=== PATIENT | female | born 1950 | race Caucasian/White ===

== ENCOUNTER 2017-09-30 06:32 | Day surgery (SDC) | payer OTHER, MEDICARE ==
[2017-09-29 17:31] VITALS: BMI 24.3
[~2017-09-30 06:32] MED LIST: BSS (NA/CA/MG/K) BALANCED SALT SOLUTION OPHTH SOLN 15 ML BOTTLE OS ONE; CHONDROITIN SU A/HYALUR SOD 1 KIT IO ONE; EPINEPHrine/PF 1 MG/1 ML (1:1,000) AMPULE SQ ONE; LIDOCAINE HCL 1% PRESERVATIVE FREE - 30ML VIAL IO ONE; POVIDONE-IODINE 5% OPHTHALMIC PREP 30 ML SOLUTION OS ONE; TETRACAINE 0.5% OPHTH SOLN 2 ML BOTTLE OS ONE
[2017-09-30] MEDS ORDERED: CIPROFLOXACIN 0.3% EYE DROPS 5 ML BOTTLE ONE (06:42)
[2017-09-30] MEDS ORDERED: CYCLOPENTOLATE HCL 1% OPHTH SOLN 2 ML BOTTLE ONE (06:42)
[2017-09-30] MEDS ORDERED: FLURBIPROFEN 0.03% OPHTH SOLN 2.5 ML BOTTLE ONE (06:42)
[2017-09-30] MEDS ORDERED: PHENYLEPHRINE 2.5% OPHTH SOLN 15 ML BOTTLE ONE (06:43)
[2017-09-30] MEDS ORDERED: TROPICAMIDE 1% OPHTH SOLN 15 ML BOTTLE ONE (06:43)
[2017-09-30] MEDS ORDERED: FLURBIPROFEN 0.03% OPHTH SOLN 2.5 ML BOTTLE OS ONE ×3 (07:00→07:20)
[2017-09-30] MEDS ORDERED: PHENYLEPHRINE 2.5% OPHTH SOLN 15 ML BOTTLE OS ONE ×3 (07:00→07:20)
[2017-09-30] MEDS ORDERED: CYCLOPENTOLATE HCL 1% OPHTH SOLN 2 ML BOTTLE OS ONE ×3 (07:00→07:20)
[2017-09-30] MEDS ORDERED: TROPICAMIDE 1% OPHTH SOLN 15 ML BOTTLE OS ONE ×3 (07:00→07:20)
[2017-09-30] MEDS ORDERED: CIPROFLOXACIN HCL 0.3% OPHTH 2.5ML BOTTLE OS ONE ×3 (07:00→07:20)
[2017-09-30 07:11] VITALS: TEMP 98.3
[2017-09-30] MEDS ORDERED: EPINEPHrine/PF 1 MG/1 ML (1:1,000) AMPULE ONE (07:28)
[2017-09-30] MEDS ORDERED: VANCOMYCIN 500 MG VIAL (RESTRICTED TO ID ONLY) ONE (07:28)
[2017-09-30] MEDS ORDERED: TETRACAINE 0.5% OPHTH SOLN 2 ML BOTTLE ONE (07:29)
[2017-09-30] MEDS ORDERED: LIDOCAINE HCL/PF 1% SDV 5ML VIAL ONE (07:29)
[2017-09-30] MEDS ORDERED: WATER FOR INJ,STERILE 10 ML ONE (07:30)
[2017-09-30] MEDS ORDERED: BSS (NA/CA/MG/K) BALANCED SALT SOLUTION OPHTH SOLN 15 ML BOTTLE ONE (07:30)
[2017-09-30] MEDS ORDERED: POVIDONE-IODINE 5% OPHTHALMIC PREP 30 ML SOLUTION ONE (07:30)
[2017-09-30] MEDS ORDERED: ACETAMINOPHEN 325 MG TABLET (FP) PO PRN (07:53)
[2017-09-30] MEDS ORDERED: MIDAZOLAM HCL 2 MG/2 ML SINGLE DOSE VIAL ONE ×2 (07:59→08:12)
[2017-09-30] MEDS ORDERED: CIPROFLOXACIN HCL 0.3% OPHTH 2.5ML BOTTLE OP SCH (08:00)
[2017-09-30] MEDS ORDERED: TROPICAMIDE 1% OPHTH SOLN 15 ML BOTTLE OP SCH (08:00)
[2017-09-30] MEDS ORDERED: PHENYLEPHRINE 2.5% OPHTH SOLN 15 ML BOTTLE OP SCH (08:00)
[2017-09-30] MEDS ORDERED: CYCLOPENTOLATE HCL 1% OPHTH SOLN 2 ML BOTTLE OP SCH (08:00)
[2017-09-30] MEDS ORDERED: FLURBIPROFEN 0.03% OPHTH SOLN 2.5 ML BOTTLE OP SCH (08:00)
[2017-09-30] MEDS ORDERED: TETRACAINE 0.5% OPHTH SOLN 2 ML BOTTLE OS ONE (08:05)
[2017-09-30] MEDS ORDERED: POVIDONE-IODINE 5% OPHTHALMIC PREP 30 ML SOLUTION OS ONE (08:10)
[2017-09-30] MEDS ORDERED: LIDOCAINE HCL 1% PRESERVATIVE FREE - 30ML VIAL IO ONE (08:19)
[2017-09-30] MEDS ORDERED: CHONDROITIN SU A/HYALUR SOD 1 KIT IO ONE (08:19)
[2017-09-30] MEDS ORDERED: BSS (NA/CA/MG/K) BALANCED SALT SOLUTION OPHTH SOLN 15 ML BOTTLE OS ONE (08:19)
[2017-09-30] MEDS ORDERED: EPINEPHrine/PF 1 MG/1 ML (1:1,000) AMPULE SQ ONE (08:25)
--- NOTE | 2017-09-30 08:55 | SPEC ---
DATE OF OPERATION: DATE OF DICTATION: 09/30/2017 PREOPERATIVE DIAGNOSIS: Cataract, left eye. POSTOPERATIVE DIAGNOSIS: Cataract, left eye. OPERATION: Phacoemulsification with posterior chamber intraocular lens implantation, left eye. Lens used [id number], 6.5 diopter power, serial number [id number]. SURGEON: Dixie Daniels MD ANESTHESIA: Topical, MAC. COMPLICATIONS: None. PROCEDURE: The patient was brought to the operating room and correctly identified along with the operative site and the correct intraocular lens peñaloza. The patient was then prepped and draped in the usual sterile fashion including 5% Betadine solution in the conjunctival sac and an eyelid drape. An eyelid speculum was then placed in the eye. A paracentesis port was created and approximately 0.5 mL of preservative-free lidocaine was then injected into the eye. Viscoelastic was then injected to inflate the anterior chamber. A temporal clear corneal wound was created. A continuous circular capsulorrhexis was performed. The nucleus was then hydrodissected with BSS and removed with phacoemulsification. The remaining cortical material was irrigated and aspirated. Viscoelastic was injected to inflate the capsular bag and the intraocular lens was then implanted into the capsular bag. The remaining Viscoelastic was irrigated and aspirated from the eye. The IOL was noted to be well centered and completely covered by the anterior capsulorrhexis. Topical vancomycin was placed and the eye patched and shielded. All wounds were tested and found to be watertight. No suture was placed. The eye was then shielded. The patient was then discharged from the operating room in stable condition. DIXIE DANIELS M.D. [id number]
[2017-09-30] MEDS ORDERED: ACETAMINOPHEN 325 MG TABLET (FP) ONE (09:25)
[2017-09-30] MEDS ORDERED: ACETAMINOPHEN 325 MG TABLET (FP) PO ONE (09:27)
[2017-09-30 10:50] VITALS: BP 146/70; PULSE 73
== END 2017-09-30 10:54 | disposition home or self-care (01) ==
LOC: JASU-SURG 06:32
PROVIDERS: ATTEND Ophthalmology
PROC: 08RK3JZ Replacement of Left Lens with Synthetic Substitute, Percutaneous Approach (ICD-10-PCS; principal; 2017-09-30 08:00)
DX: H26.9 Unspecified cataract (principal)